=== PATIENT | female | born 1985 | race Caucasian/White ===

== ENCOUNTER 2017-10-09 08:20 | Day surgery (SDC) | payer OTHER ==
[~2017-10-09 08:20] MED LIST: HYDROmorphone 2 MG/ML VIAL IV; LIDOCAINE 1% PF 2 ML VIAL. ID; ONDANSETRON PF 4 MG/2 ML VIAL. IV; ceFAZolin 2GM PREMIX 2 GM/50 ML BAG IV; fentaNYL PF VIAL 100 MCG/2 ML VIAL IV
[2017-10-09 09:09] LABS: NEG OBC UR NEG; POS OBC UR POS; U PREG PATIENT NEGATIVE (NEG)
[2017-10-09] MEDS: IV RINGERS,LACTATED 1000ML 1,000 ML IV (09:12)
[2017-10-09] MEDS ORDERED: ONDANSETRON PF 4 MG/2 ML VIAL. (09:22)
[2017-10-09] MEDS ORDERED: LIDOCAINE 1% PF 5 ML VIAL. (09:22)
[2017-10-09] MEDS ORDERED: DEXAMETHASONE SOD PHOS 20 MG/5 ML VIAL. (09:22)
[2017-10-09] MEDS ORDERED: fentaNYL PF VIAL 100 MCG/2 ML VIAL (09:22)
[2017-10-09] MEDS ORDERED: MIDAZOLAM HCL/PF 2 MG/2 ML VIAL. (09:22)
[2017-10-09] MEDS ORDERED: PROPOFOL 20 ML IV (09:22)
[2017-10-09] MEDS ORDERED: SEVOFLURANE 31 TO 60 MINUTES. IH (10:05)
[2017-10-09] MEDS: BUPIVACAINE MPF 0.5% 30 ML VIAL. (10:27)
[2017-10-09] MEDS: LIDOCAINE 1% 20 ML VIAL. (10:27)
[2017-10-09] MEDS: PROCHLORPERAZINE 10 MG/2 ML VIAL. IV (11:18)
[2017-10-09] MEDS: fentaNYL PF VIAL 100 MCG/2 ML VIAL IV ×2 (11:19→11:38)
[2017-10-09] MEDS: MORPHINE SULFATE 4 MG/ML DISP.SYRIN. IV ×2 (11:21→11:38)
[2017-10-09] MEDS: oxyCODONE/APAP 5/325 1 TAB TABLET PO (11:45)
== END 2017-10-09 13:03 | disposition home or self-care (01) ==
LOC: SURG 08:20
DX: S92.351A Displaced fracture of fifth metatarsal bone, right foot, initial encounter for closed fracture (principal); J45.909 Unspecified asthma, uncomplicated; F31.9 Bipolar disorder, unspecified; K58.9 Irritable bowel syndrome, unspecified; F41.9 Anxiety disorder, unspecified; G43.909 Migraine, unspecified, not intractable, without status migrainosus; X58.XXXA Exposure to other specified factors, initial encounter; Y93.89 Activity, other specified; Y92.89 Other specified places as the place of occurrence of the external cause; Y99.8 Other external cause status; Z98.890 Other specified postprocedural states; Z98.51 Tubal ligation status
CPT/HCPCS: 28485; 76000; 81025; C1713; J0690; J0780; J1100; J2250; J2270; J2405; J2704; J3010; J3490